=== PATIENT | male | born 1960 | race Hispanic/Latino ===

== ENCOUNTER 2018-04-16 07:20 | Emergency (ER) | payer SELFPAY | END 2018-04-16 08:46 | disposition home or self-care (01) | LOC: ERS 07:20 | DX: S81.811D Laceration without foreign body, right lower leg, subsequent encounter (principal); F17.210 Nicotine dependence, cigarettes, uncomplicated ==

== ENCOUNTER 2018-04-19 13:17 | Emergency (ER) | payer SELFPAY | END 2018-04-19 14:26 | disposition home or self-care (01) | LOC: ERS 13:17 | DX: S81.811D Laceration without foreign body, right lower leg, subsequent encounter (principal); F17.210 Nicotine dependence, cigarettes, uncomplicated; Z71.6 Tobacco abuse counseling | CPT/HCPCS: 99406 ==

== ENCOUNTER 2023-04-18 22:10 | Inpatient (IN) | payer SELFPAY ==
[2023-04-18] MEDS ORDERED: Ondansetron ODT 4 MG TAB PO PRN (23:05)
[2023-04-18] MEDS ORDERED: Senokot S 8.6-50 MG TAB PO PRN (23:05)
[2023-04-18] MEDS ORDERED: Acetaminophen 325 MG TAB PO PRN (23:05)
[2023-04-18] MEDS ORDERED: Bisacodyl 5 MG TAB PO PRN (23:05)
[2023-04-18] MEDS ORDERED: Acetaminophen 650 MG Suppository PR PRN (23:05)
[2023-04-18] MEDS ORDERED: Ondansetron PF 4 MG/2 ML Vial IVP PRN (23:05)
[2023-04-18] MEDS ORDERED: Potassium Chloride 20 MEQ TAB PO SCH (23:30)
[2023-04-18 23:42] VITALS: BMI 27.6
[2023-04-18] MEDS ORDERED: Electrolyte Replacement Protocol 1 EACH FS SCH (23:45)
[2023-04-18] MEDS ORDERED: Magnesium 2 GM/50 ML(in water) 2 GM in Premix Bag 1 BAG IVPB SCH (23:45)
[2023-04-18 23:48] LABS: Magnesium 1.9 mg/dL (1.6-2.6)
[2023-04-18 23:54] LABS: Troponin I 1.273 ng/mL (< 0.028)
[2023-04-19] MEDS ORDERED: Communication Order-Pharmacy FS ONE (00:30)
[2023-04-19 01:01] LABS: Hematocrit 39.9 % (42.0-52.0); Hemoglobin 13.2 g/dL (14.0-18.0); Platelet Count 151 10x3/uL (130-400)
[2023-04-19] MEDS ORDERED: Atropine Sulfate 1 mg/10 ml Syringe IVP SCH (01:30)
[2023-04-19 04:55] LABS: #Basophils 0.1 thou/uL (0.0-0.2); #Eosinphils 0.2 thou/uL (0.0-0.7); #Monocytes 1.1 thou/uL (0.11-0.59); #Neutrophils 7.1 thou/uL (1.40-6.50); %Basophils 0.5 % (0.0-1.0); %Eosinophils 1.6 % (0.0-10.0); %Monocytes 10.1 % (0.0-10.0); %Neutrophils 66.6 % (42.0-75.0); Hematocrit 42.7 % (42.0-52.0); Mean Corpuscular HGB CONC 32.8 g/dL (32.0-36.0); Mean Corpuscular Hemoglobin 30.3 pg (27.0-31.0); Mean Corpuscular Volume 92.4 fl (78.0-98.0); Mean Platelet Volume 12.4 fL (7.4-10.4); Platelet Count 152 10x3/uL (130-400); RBC Distribution Width 14.9 % (11.5-14.5); Red Blood Cell (RBC) Count 4.62 mill/uL (4.70-6.10); White Blood Cell (WBC) Count 10.6 10x3/uL (4.8-10.8)
[2023-04-19 05:05] LABS: Hemoglobin A1c 5.4 % (4.0-6.0)
[2023-04-19 05:22] LABS: Anion Gap 12 mmol/L (10-20); BUN (Urea Nitrogen) 14 mg/dL (8.4-25.7); Calc. Creatinine Clearance 103 mL/min (70-130); Calcium 9.1 mg/dL (7.8-10.44); Carbon Dioxide 23 mmol/L (23-31); Cardiac Risk 4.6 (Less than 4.5); Chloride 108 mmol/L (98-107); Cholesterol 189 mg/dl (< 200 Desired); Estimated GFR 100; Glucose 93 mg/dL (80-115); HDL Cholesterol 41 mg/dL (>60 Neg Risk); LDL Cholesterol, Calculated 134 mg/dL; Magnesium 2.2 mg/dL (1.6-2.6); Sodium 139 mmol/L (136-145); Triglycerides 72 mg/dL (Less than 150)
[2023-04-19] MEDS: Nitroglycerin 2% Ointment 1 INCH/1 GM Packet TOP SCH ×3 (05:46→21:31)
[2023-04-19 06:24] LABS: Troponin I 3.447 ng/mL (< 0.028)
[2023-04-19] MEDS: Aspirin 81 mg Enteric Coated Tablet PO SCH (08:42)
[2023-04-19] MEDS ORDERED: Famotidine 20 MG TAB PO SCH (09:00)
[2023-04-19] MEDS ORDERED: Communication Order-Pharmacy FS SCH ×2 (11:30)
[2023-04-19] MEDS ORDERED: Atorvastatin Calcium 40 MG TAB PO SCH (21:00)
[2023-04-20] MEDS: Nitroglycerin 2% Ointment 1 INCH/1 GM Packet TOP SCH (06:00)
[2023-04-20] MEDS ORDERED: Sodium Chloride 0.9% 1,000 ML IV SCH ×2 (06:00→09:34)
[2023-04-20] MEDS ORDERED: Lidocaine 1% (PF) 30 ML VIAL ONE (06:29)
[2023-04-20] MEDS ORDERED: Heparin 10,000 UNITS/ 10 ML VIAL ONE ×2 (06:41→07:47)
[2023-04-20] MEDS ORDERED: Nitroglycerin 50 MG/250 ML BOT 250 ML ONE (06:41)
[2023-04-20] MEDS ORDERED: fentaNYL 50 mcg/mL 1 mL Vial ONE (06:47)
[2023-04-20] MEDS ORDERED: Midazolam HCl 2 mg/2 ml Vial ONE (06:47)
[2023-04-20] MEDS ORDERED: Atropine Sulfate 1 mg/10 ml Syringe ONE ×3 (07:54→07:55)
[2023-04-20] MEDS ORDERED: Tirofiban-0.9% Sodium Chloride 250 ML ONE (08:03)
[2023-04-20] MEDS ORDERED: Clopidogrel Bisulfate 300 MG TAB ONE (08:29)
[2023-04-20] MEDS ORDERED: Nitroglycerin 0.4 MG TAB (25 Tab Bottle) SL PRN (09:32)
[2023-04-20] MEDS ORDERED: Morphine 2 MG/ML VIAL SLOW IVP PRN (09:32)
[2023-04-20] MEDS ORDERED: Iopamidol 370 76% 100 ML VIAL ONE (09:42)
[2023-04-20] MEDS ORDERED: Tirofiban-0.9% Sodium Chloride 250 ML IVPB SCH (09:45)
[2023-04-20] MEDS ORDERED: Morphine 2 MG/ML VIAL ONE (10:37)
[2023-04-20] MEDS: Aspirin 81 mg Enteric Coated Tablet PO SCH (11:40)
[2023-04-20] MEDS ORDERED: Atorvastatin Calcium 40 MG TAB PO SCH (21:00)
[2023-04-21 05:13] LABS: #Basophils 0.1 thou/uL (0.0-0.2); #Eosinphils 0.2 thou/uL (0.0-0.7); #Monocytes 1.2 thou/uL (0.11-0.59); #Neutrophils 5.5 thou/uL (1.40-6.50); %Basophils 0.7 % (0.0-1.0); %Eosinophils 2.2 % (0.0-10.0); %Lymphocytes 23.1 % (21.0-51.0); %Monocytes 13.1 % (0.0-10.0); %Neutrophils 60.7 % (42.0-75.0); Hematocrit 43.9 % (42.0-52.0); Hemoglobin 14.5 g/dL (14.0-18.0); Mean Corpuscular Hemoglobin 30.6 pg (27.0-31.0); Mean Corpuscular Volume 92.6 fl (78.0-98.0); Mean Platelet Volume 12.9 fL (7.4-10.4); Platelet Count 157 10x3/uL (130-400); RBC Distribution Width 14.9 % (11.5-14.5); Red Blood Cell (RBC) Count 4.74 mill/uL (4.70-6.10); White Blood Cell (WBC) Count 9.1 10x3/uL (4.8-10.8)
[2023-04-21 07:01] LABS: ALT (SGPT) 17 U/L (8-55); AST (SGOT) 30 U/L (5-34); Albumin 3.9 g/dL (3.4-4.8); Alkaline Phosphatase 85 U/L (40-110); Anion Gap 12 mmol/L (10-20); BUN (Urea Nitrogen) 11 mg/dL (8.4-25.7); Bilirubin, Total 0.9 mg/dL (0.2-1.2); Calc. Creatinine Clearance 104 mL/min (70-130); Calcium 9.2 mg/dL (7.8-10.44); Carbon Dioxide 24 mmol/L (23-31); Chloride 107 mmol/L (98-107); Estimated GFR 100; Globulin 2.6 g/dL (2.4-3.5); Glucose 91 mg/dL (80-115); Potassium 3.8 mmol/L (3.5-5.1); Protein, Total 6.5 g/dL (5.8-8.1); Sodium 139 mmol/L (136-145)
[2023-04-21] MEDS ORDERED: Clopidogrel Bisulfate 75 MG TAB PO SCH (09:00)
[2023-04-21] MEDS ORDERED: Aspirin Chewable 81 MG TAB PO SCH (09:00)
[2023-04-21] MEDS ORDERED: Lisinopril 2.5 MG TAB PO SCH (09:00)
[2023-04-21] MEDS: Aspirin 81 mg Enteric Coated Tablet PO SCH (09:36)
[2023-04-21 12:22] VITALS: BP 119/73; TEMP 98.3
== END 2023-04-21 15:45 | disposition home or self-care (01) | DRG 322 ==
LOC: 2SE 22:56 → OBSVTOIN 04-19 09:14
PROVIDERS: ADMIT Student in an Organized Health Care Education/Training Program; ATTEND Family Medicine
PROC: 027034Z Dilation of Coronary Artery, One Artery with Drug-eluting Intraluminal Device, Percutaneous Approach (ICD-10-PCS; principal; 2023-04-20)
PROC: 02C03ZZ Extirpation of Matter from Coronary Artery, One Artery, Percutaneous Approach (ICD-10-PCS; 2023-04-20)
PROC: 4A023N7 Measurement of Cardiac Sampling and Pressure, Left Heart, Percutaneous Approach (ICD-10-PCS; 2023-04-20)
PROC: B2111ZZ Fluoroscopy of Multiple Coronary Arteries using Low Osmolar Contrast (ICD-10-PCS; 2023-04-20)
PROC: B2151ZZ Fluoroscopy of Left Heart using Low Osmolar Contrast (ICD-10-PCS; 2023-04-20)
DX: I21.4 Non-ST elevation (NSTEMI) myocardial infarction (principal); F17.210 Nicotine dependence, cigarettes, uncomplicated; E87.6 Hypokalemia; I10 Essential (primary) hypertension; I25.10 Atherosclerotic heart disease of native coronary artery without angina pectoris; E78.00 Pure hypercholesterolemia, unspecified; Z98.890 Other specified postprocedural states
CPT/HCPCS: 36415; 80048; 80053; 80061; 83036; 83735; 84484; 85025; 85347; 92921; 92928; 92973; 93005; 93010; 93306; 93458; 93798; 94760; 96372; 96374; 96375; 99152; 99153; C1725; C1757; C1769; C1874; C1887; C9600; G0378; J0461; J1644; J1650; J2001; J2250; J2272; J3010; J3246; J3475; J7050; Q9967